=== PATIENT | female | born 1990 | race Caucasian/White ===

== ENCOUNTER 2018-03-09 02:40 | Emergency (ER) | payer OTHER ==
[2018-03-09 15:39] LABS: SQUAMOUS EPITHIAL 3 /hpf (0-5); URINE BILIRUBIN NEGATIVE (NEGATIVE); URINE BLOOD NEGATIVE (NEGATIVE); URINE CLARITY Clear (Clear); URINE COLOR Yellow (YELLOW); URINE GLUCOSE (UA) NORMAL (Normal); URINE HYALINE CAST 0-2 /lpf (0-2); URINE LEUKOCYTE ESTERASE NEG Leu/uL (Negative); URINE PROTEIN NEGATIVE (NEGATIVE); URINE UROBILINOGEN NORMAL mg/dL (0.2-1.0)
--- NOTE | 2018-03-09 18:49 | OBHP ---
Datetime: 03/09/2018 14:20 IP Adm Impression: Term, intrauterine ; No Active Labor; Intact Membranes IP Admit Plan: Observation/Evaluation Admit Comment, IP Provider: 27 yo female G1 with an IUP at 40 weeks and presented with c/o of Decrea se FM since about 9 AM today. Denies LOF, VB, VD or uterine activity PMHx and PSHx Negative Meds PNV NKDA Social HX negative x 3 A/P Term , not in labor Unfavorable cervix and scheduled for IOL on 03/15 Decreased Movement and OB US ordered with BPP + FM perceived and recorded while in here Drinks little to no water and po Hydration given UA sent to lab NST Reactive Continue monitoringObservation for now Pelvic Type - PN: Adequate Extremities - PN: Normal Abdomen - PN: Normal Back - PN: Normal Breast - PN: Not Done Lungs - PN: Normal Heart - PN: Normal Thyroid - PN: Normal Neurologic - PN: Normal HEENT - PN: Normal General - PN: Normal Presentation-Admit: Vertex FHR - Baseline A Provider: 140 Membranes, Provider: Intact Contraction Comments Provider: Ocassioal Gestation - Est Wks by US: 40.0 IP Hx Assessment: PNC records reviewed Vital Signs Provider: Reviewed; Within Normal Limits IP Chief Complaint: Decreased movement; evaluation NICHD Variability Prov Fetus A: Moderate 6-25bpm NICHD Accel Fetus A IP Provider: 10X10 FHR Category Provider Fetus A: Category I NICHD Decel Fetus A IP Provider: None Dilatation, Provider: Ftp Effacement, Provider: 50 Station, Provider: -3 Genitourinary Exam: Normal DTRs - PN: Normal
--- NOTE | 2018-03-09 18:57 | OBDCSUM ---
Datetime: 03/09/2018 18:48 Discharged to, Provider: Home Follow up at, Provider: Clinic Disch Instr Activity: Normal activity Disch Instr Diet: Regular Discharge Instructions, Provider: Routine instructions given Discharge Time: 03/09/2018 17:55 Follow up in weeks, Provider: Scheduled appt on 03/13 Contraception discussed, Prov: Yes Disch Activity Restrictions: No exercising Discharge Comment, Provider: 27 yo female G1 with an IUP at 40 weeks and presented with c/o of Decre ase FM since about 9 AM today. Denies LOF, VB, VD or uterine activity PMHx and PSHx Negative Meds PNV NKDA Social HX negative x 3 A/P Term , not in labor Unfavorable cervix and scheduled for IOL on 03/15 S/P Decreased Movement OB US ordered and HAYLEY 15 with BPP 8/8 NST Reactive so BPP 10/10 + FM perceived and recorded while in here Drinks little to no water and po Hydration given UA done and only mild dehydration noted Advised to increase po water intake Has appointment for BPP at [facility] on Tuesday 03/13 and advised to keep that appointment Meantime advised to do Kick Counts 3 x d after meals and verbalized understanding of instructions Labor precautions reviewed with patient and understood Continue PNV daily Discharged home in Stable and Satisfactory condition Discharge Diagnosis Prov Other: Term S/P Decrease Movement Not in labor BPP 10/10 Contraception after Delivery: Undecided Datetime: 03/09/2018 17:49 Discharged to, Provider: Home Disch Instr Activity: Normal activity Disch Instr Diet: Regular Discharge Time: 03/09/2018 17:50 Follow up in weeks, Provider: clinic Disch Referrals: Visiting Nurse Disch Activity Restrictions: No exercising
[2018-03-09 22:06] VITALS: BP 115/61; PULSE 81; RESP 20; TEMP 97.9
--- NOTE | 2018-03-10 10:42 | US ---
Limited OB ultrasound/biophysical profile. Indication: Decreased movement Comparison: None available Technique: Real-time ultrasound was performed through the pelvis. Findings: There is a single living fetus in cephalic presentation. Amniotic fluid volume measures approximately 15.7 cm, within normal limits. Fundal placenta. The placenta is not previa. There are no adnexal masses or cysts evident. Cervix length measures approximately 3.7 cm. The study was performed for the emergent evaluation of decreased motion, and the whole anatomic survey of the fetus was not performed. Limited visualized anatomy appears grossly unremarkable. Measurements and calculations: Fetus has a composite sonographic age of 39 weeks 0 days. This calculation is based on the biparietal diameter, head circumference, abdominal circumference, and femur length. Estimated heart rate 133 beats per min. Estimated weight 3727 g. Biophysical profile: movements 2/2 breathing 2/2 tone 2/2 Amniotic fluid 2/2 Total score impression: 11/23 Impression: Single living fetus with a composite sonographic age of 39 weeks 0 days. Estimated heart rate 133 beats per min. Biophysical profile of 8 out of 8. Preliminary impression was provided by [employer].
== END 2018-03-09 17:56 | disposition home or self-care (01) ==
LOC: C.EROB 02:40
DX: O36.8130 Decreased fetal movements, third trimester, not applicable or unspecified (principal); Z3A.40 40 weeks gestation of pregnancy

== ENCOUNTER 2018-03-11 11:30 | Inpatient (IN) | payer OTHER ==
[2018-03-11] MEDS ORDERED: Lactated Ringer's 1,000 ML IV ONE (12:31)
[2018-03-11 12:32] VITALS: BMI 27.1
[2018-03-11] MEDS ORDERED: Lactated Ringer's 1,000 ML IV SCH (12:45)
[2018-03-11 13:06] LABS: BASO # 0.1 K/uL (0.0-0.2); BASO % 0.4 % (0.0-2.0); EOS # 0.2 K/uL (0.0-0.7); EOS % 1.5 % (0.0-4.0); HEMOGLOBIN 12.9 g/dL (11.0-16.0); LYMPH # 1.9 K/uL (1.0-4.3); LYMPH % 14.9 % (20.0-40.0); MEAN CELL VOLUME 85.6 fL (81.0-99.0); MEAN CORPUSCULAR HEMOGLOBIN 28.3 pg (27.0-31.0); MEAN PLATELET VOLUME 11.8 fL (7.2-11.7); MONO # 0.9 K/uL (0.0-0.8); MONO % 7.4 % (0.0-10.0); NEUT # 9.7 K/uL (1.8-7.0); NEUT % 75.8 % (50.0-75.0); NRBC % 0.1 % (0.0-2.0); RBC 4.58 Mil/uL (3.80-5.20); RED CELL DISTRIBUTION WIDTH 14.1 % (11.5-14.5); WHITE BLOOD COUNT 12.8 K/uL (4.8-10.8)
[2018-03-11 13:11] LABS: SQUAMOUS EPITHIAL 1 /hpf (0-5); URINE BILIRUBIN NEGATIVE (NEGATIVE); URINE BLOOD 2+ (NEGATIVE); URINE CLARITY SLHAZY (Clear); URINE COLOR Yellow (YELLOW); URINE GLUCOSE (UA) NORMAL (Normal); URINE LEUKOCYTE ESTERASE 1+ Leu/uL (Negative); URINE PROTEIN NEGATIVE (NEGATIVE); URINE UROBILINOGEN NORMAL mg/dL (0.2-1.0)
[2018-03-11 13:23] LABS: ALBUMIN 3.7 g/dL (3.5-5.0); ALT/SGPT 24 U/L (9-52); AST/SGOT 28 U/L (14-36); BLOOD UREA NITROGEN 7 mg/dL (7-17); CALCIUM 9.1 mg/dl (8.6-10.4); GFR NON-AFRICAN AMERICAN > 60
--- NOTE | 2018-03-11 13:35 | OBADHP ---
Datetime: 03/11/2018 12:05 IP Chief Complaint Other: Vaginal spotting IP Admit Plan Other: Cervical ripening Admit Comment, IP Provider: Patient received in bed, LDR#4, accompanied by diony and her mother 27 y.o. , LMP 06/02/17, CAIN 03/09/18, EGA 40w 2d, confirmed by sono 08/30/17 at 13w 1d c/o vag inal spotting upon wiping after micturitionon 2 occasions this morning, 0400 [id number] hours. Patient a lso reported that her underwear was very "heavy'/ wet at both times - less so at 0730 hours. (+) AFM. Denies Ctx; feels pressure "when I walk". care: [facility]-; noted for abnormal 1 hr glucose challenge, 157 mg/dL and normal 3hr GTT 78/147/132/99, hgb A1C 4.1. 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 x 2 years. Unemployed Fam Hx:Mother alive 59 - HTN. Father alive 59 y.o. - asthma. No known fam h/o cancer P.E.: as above. WD in NAD. Patient has a mild speech impediment. Awake, alert, oriented to time, p erson and place. Assessment: 27 y.o. 40w 2d by LMP and early 2nd trimester sono, PPROM - evidenced by oligohydramni os by bedside ultrasound. Category 1 tracing. D/W cervical ripening, and possible pitocin for continu ed augmentaiton. Also discussed pain management. Patient expressed an understanidng and offered no qu etoins. Patietn is clincally stabl.e Plan: 1) Admit 2) NPO 3) Admission labs 4) Continuous EFM 5) Cervidil 6) Anesthesia consult, when indicated/ upon request 7) Anticipate vaginal delivery Addendum: 1302 hours: - cervidil placed in posterior vaginal vault without incident Pelvic Type - PN: Adequate Extremities - PN: Normal Abdomen - PN: Normal Back - PN: Normal Breast - PN: Not Done Lungs - PN: Normal Heart - PN: Normal Thyroid - PN: Not Done Neurologic - PN: Normal HEENT - PN: Normal General - PN: Normal Weight - Estimated: 6lb 8oz Presentation-Admit: Vertex FHR - Baseline A Provider: 130 Contraction Comments Provider: irregular Comments, ACOG Physical Exam: Abdomenn: Gravid. Soft. Non tender in all quadrants. Fundal height 35. 5 cm Perineum: dry Spec: mucoid, yellow, slightly blood-streaked discharge. No pooling. Nitrazine(-). Bedside sono: cephalic, (+) FBM, (+) FM; HAYLEY/MVP 1.1cm Extremities: (+) birthmark - dorsal aspect of left thigh All other systems reviewed and are negative Gestation - Est Wks by US: 40w 2d IP Hx Assessment: The History has been Reviewed and is Current Vital Signs Provider: Reviewed; Within Normal Limits IP Chief Complaint: Other NICHD Variability Prov Fetus A: Moderate 6-25bpm NICHD Accel Fetus A IP Provider: 15X15 FHR Category Provider Fetus A: Category I NICHD Decel Fetus A IP Provider: None Dilatation, Provider: 2 Effacement, Provider: 30 DTRs - PN: Normal EGA AdmitDate IP: 40.2 IP Adm Impression: Postterm, intrauterine ; No Active Labor; Ruptured Membranes IP Admit Plan: Admit to unit; Initiate labor augmentation protocol Datetime: 03/09/2018 14:20 Membranes, Provider: Intact Station, Provider: -3 Genitourinary Exam: Normal
--- NOTE | 2018-03-11 22:22 | OBPN ---
Datetime: 03/11/2018 22:14 IP Progress Impression: Normal progression of labor IP Procedures: Sterile Vag Exam IP Progress Plan: Continue present management; Cervical Ripening; Anesthesia consult Membranes, Provider: Ruptured Contraction Comments Provider: 2 FHR - Baseline A Provider: 140 Gestation - Est Wks by US: 40w 2d Presentation-Admit: Vertex IP Progress Note Comment: Patient c/o increasing pain. Cervical exam: as above. Assessment: 27 y.o. P0, 40w 2d, prolonged prelabor rupture of membranes, reulting in oligohydramni os. Responding well to cervical ripening. Afebrile; vital signs stable. Category 1 tracng. Patient re ceptive to epidural at this time. Clinically stable. Plan: 1) Start ampicillin 2) Anesthesia consult 3) Anticipate vaginal delivery Vital Signs Provider: Reviewed; Within Normal Limits NICHD Accel Fetus A IP Provider: 15X15 FHR Category Provider Fetus A: Category I NICHD Variability Prov Fetus A: Moderate 6-25bpm Dilatation, Provider: 4 Effacement, Provider: 50 Station, Provider: -3 NICHD Decel Fetus A IP Provider: None Datetime: 03/11/2018 12:05 Weight - Estimated: 6lb 8oz
[2018-03-11] MEDS ORDERED: AMPicillin 1 GM in Sodium Chloride 0.9% 100 ML IVPB SCH (22:30)
[2018-03-11] MEDS ORDERED: Bupivacaine HCl/FentaNYL Cit 100 ML EPI ONE (23:16)
[2018-03-11] MEDS ORDERED: Lidocaine Hydrochloride 5 ML INJ ONE ×2 (23:25)
[2018-03-11] MEDS ORDERED: Propofol 10 mg/ml Inj (20 ML) ONE (23:31)
[2018-03-11] MEDS ORDERED: Sodium Bicarbonate (8.4%) 50 Meq Syringe ONE (23:37)
[2018-03-11] MEDS ORDERED: Lidocaine 2% MPF (5 ml) Inj ONE (23:38)
[2018-03-11] MEDS ORDERED: Ketamine 50 mg/ml Inj (10 ml) ONE (23:41)
[2018-03-12] MEDS ORDERED: Oxytocin 30 UNIT 30 UNITS/500 ML BAG IV SCH (02:00)
[2018-03-12] MEDS ORDERED: Lidocaine 2% MPF (5 ml) Inj ONE ×2 (03:21→03:24)
[2018-03-12] MEDS ORDERED: Oxycodone/Acetaminophen 5/325 mg Tab PO PRN (03:57)
[2018-03-12] MEDS ORDERED: Benzocaine/Menthol 20%-0.5% Topical Spray (60 ml) TOP PRN (03:57)
--- NOTE | 2018-03-12 04:03 | OBDS ---
DELIVERY PERSONNEL Delivery Doctor: Mary Peña MD Printing Equipment Mechanic Apprentice: Angie Woodard RN Anesthesiologist: James Steward MD MATERNAL INFORMATION Delivery Anesthesia: Epidural Medications in Delivery: pitocin 20 units Placenta Cultured: No Maternal Complications: None Provider Comments: Uncomplicated vaginal delivery of live male over RML, thick mecoinium liqu or, compound presentation and cord around body. Infant's nose and mouth bulb-suctioned. Umbilical cor d doubly clamped and cut, infant placed on mother's abdomen. Portion of cord also submitted for cord pH, results = 7.11 Spontaneous delivery of placenta - grossly intact; 3 vessel cord; meconium stained. Uterine exploration performed - evacuated of blood and clots; uterus contracted and firm Cervix, vagina and perineum inspected - no extensions. Episiotomy repair as above. Hemostasis assured. Patient tolerated procedure well Infant and mother bonding; both in stable condition EBL 300 mL Weight 6lb 14oz 's 9/9 LABOR SUMMARY EDC: 03/09/2018 00:00 No. Babies in Womb: 0 Attempted: No Labor Anesthesia: Epidural LABOR INFORMATION Reason for Induction: Oligohydramnios Onset of Labor: 03/11/2018 23:00 Complete Dilatation: 03/12/2018 02:10 Cervical Ripening Agents: Cervidil Oxytocin: N/A Group B Beta Strep: Negative Antibiotics # of Doses: 1 Antibiotics Time of Last Dose: 2230 Steroids Given: None Reason Steroids Not Administered: Not Applicable MEMBRANES Membranes Rupture Method: Artificial Rupture of Membranes: 03/11/2018 04:00 Length of Rupture (hrs): 23.10 Amniotic Fluid Color: Heavy Meconium Amniotic Fluid Amount: Moderate Amniotic Fluid Odor: Normal STAGES OF LABOR Stage 1 hrs: 3 Stage 1 min: 10 Stage 2 hrs: 0 Stage 2 min: 56 Stage 3 hrs: 0 Stage 3 min: 7 Total Time in Labor hrs: 4 Total Time in Labor min: 13 VAGINAL DELIVERY Episiotomy: Right Mediolateral Laceration Extension: N/A Laceration Type: None Laceration Repair: Yes Laceration Repair Note: 2-0 and 3-0 chromic in routine fashion Hemostasis assured. Patient tolerated procedure well Initial Vag Sponge Count: 10 Final Vag Sponge Count: 10 Initial Vag Sharps Count: 0 Final Vag Sharps Count: 3 Sponge Count Correct: Yes; Vaginal Sweep Performed Sharps Count Correct: Yes Count Comment: correct BABY A INFORMATION Infant Delivery Date/Time: 03/12/2018 03:06 Method of Delivery: Vaginal Born in Route : No : N/A Forceps: N/A Vacuum Extraction: N/A Shoulder Dystocia : No SHOULDER DYSTOCIA BABY A Delivery Date/Time: 03/12/2018 03:06 PRESENTATION/POSITION BABY A Presentation: Cephalic Cephalic Presentation: Vertex Vertex Position: Left Occipital Anterior Breech Presentation: N/A PLACENTA INFORMATION BABY A Placenta Delivery Time : 03/12/2018 03:13 Placenta Method of Delivery: Spontaneous Placenta Status: Delivered SCORES BABY A Heart Rate 1 min: >100 bpm Resp Effort 1 min: Good Cry Reflex Irritability 1 min: Cough or Sneeze or Pulls Away Muscle Tone 1 min: Active Motion Color 1 min: Body [place], Extremities Blue SCORE 1 MIN: 9 Heart Rate 5 min: >100 bpm Resp Effort 5 min: Good Cry Reflex Irritability 5 min: Cough or Sneeze or Pulls Away Muscle Tone 5 min: Active Motion Color 5 min: Body [place], Extremities Blue SCORE 5 MIN: 9 INFANT INFORMATION BABY A Gestational Age at Delivery: 40.0 Gestational Status: Term Infant Outcome : Liveborn Condition : Stable Sex: Male IDENTIFICATION/MEDS BABY A ID Band Number: [id number] ID Band Location: Left Leg; Left Arm Sensor Applied: Yes Sensor Number: [id number] Sensor Location : Cord Clamp Vitamin K Given : Aquamephyton 1 mg IM Erythromycin Given: Given Both Eyes WEIGHT/LENGTH BABY A Birthweight (gms): 3115 Weight (lb): 6 Infant Weight (oz): 14 Length Inches: 19.50 Length cms: 49.5 CORD INFORMATION BABY A No. Cord Vessels: 3 Nuchal Cord : around body and hand Infant Cord pH Baby Arterial: 7.11 Cord Blood Taken: Yes Suction: Mouth ASSESSMENT BABY A Infant Complications: Multiple Variable Decels; Meconium Physical Findings at Delivery: Within Normal Limits Infant Respirations: Appears Normal Optometrist Assistant/ALS Called : No Infant Care By: Dr. Mcdonald Transferred To: Remains with Mother
[2018-03-12] MEDS: Multiple Vitamins Tab PO SCH (17:54)
[2018-03-13 07:26] LABS: EOS # 0.1 K/uL (0.0-0.7); MEAN PLATELET VOLUME 11.3 fL (7.2-11.7)
[2018-03-13 07:43] LABS: BASO # 0.1 K/uL (0.0-0.2); BASO % 0.6 % (0.0-2.0); EOS % 0.5 % (0.0-4.0); LYMPH # 2.2 K/uL (1.0-4.3); LYMPH % 13.3 % (20.0-40.0); MEAN CELL VOLUME 85.4 fL (81.0-99.0); MEAN CORPUSCULAR HEMOGLOBIN 28.5 pg (27.0-31.0); MEAN CORPUSCULAR HGB CONC 33.4 g/dL (33.0-37.0); MONO # 1.1 K/uL (0.0-0.8); MONO % 6.6 % (0.0-10.0); NEUT # 12.9 K/uL (1.8-7.0); RBC 3.22 Mil/uL (3.80-5.20); WHITE BLOOD COUNT 16.4 K/uL (4.8-10.8)
[2018-03-13 07:48] LABS: HEMOGLOBIN 9.3 g/dL (11.0-16.0)
--- NOTE | 2018-03-13 08:55 | OBPPN ---
Datetime: 03/13/2018 08:51 PP Pain Prov: Within normal limits PP Nausea Prov: Denies PP Lochia Prov: Normal PP Impression Prov: Normal progression PP Plan Prov: Continue present management PP Progress Note Prov: A/P: S/P PPD #1 - stable, afebrile - no issues - + breast/bottle feeding - continue present mgmt Vital Signs Provider PP: Reviewed; Within Normal Limits
[2018-03-13] MEDS: Multiple Vitamins Tab PO SCH (09:41)
[2018-03-14 01:31] VITALS: O2SAT 99
[2018-03-14 08:42] VITALS: BP 111/72; PULSE 80; RESP 18; TEMP 98.9
[2018-03-14] MEDS: Multiple Vitamins Tab PO SCH (09:44)
[2018-03-14] MEDS ORDERED: Influenza Vaccine 60 MCG/0.5 ML SYR (3 yr & up) IM ONE (13:00)
--- NOTE | 2018-03-14 17:06 | OBDCSUM ---
Datetime: 03/14/2018 11:14 Discharged to, Provider: Home Follow up at, Provider: [facility] Disch Instr Activity: Normal activity Disch Instr Diet: Regular Discharge Diet restrict Prov: none Discharge Instructions, Provider: Routine instructions given Discharge Diagnosis, Provider: Term Delivered Discharge Time: 03/14/2018 13:00 Follow up in weeks, Provider: April 21, 2017 Disch Referrals: None Contraception discussed, Prov: Yes Disch Activity Restrictions: No exercising; No lifting; No driving; Minimize walking; Minimize stair -climbing; No sexual activity; Nothing in vagina - [place], tampons, douche Discharge Diagnosis Prov Other: Acute blood loss anemia Contraception counseling Contraception after Delivery: IUD Datetime: 03/14/2018 08:06 Discharged to, Provider: Home Follow up at, Provider: Your Ob-scenic artist Discharge Instructions, Provider: Routine instructions given Discharge Diagnosis, Provider: Term Delivered Follow up in weeks, Provider: 4-6 weeks Disch Activity Restrictions: No sexual activity; Nothing in vagina - [place], tampons, douche Discharge Comment, Provider: Patient seen and examined at bedside. Patient reports pain is much impr anup today and has not needed pain medication. She is walking. Reports a bowel movement yesterday. No rmal lochia. Patient is breast feeding with a shield. Denies fever, chills, nausea, vomiting, dysuria and urinary frequency. Assessment and plan: S/p PPD#2 -Discharge to home -Ferrous Sulfate 325mg PO daily -Vitamin C suppliment daily -Increase green vegetables in diet -Pelvic rest for 6-8 weeks -Continue vitamins -Drink plenty of water daily -Follow up with your Ob-scenic artist in 4-6 weeks
== END 2018-03-14 15:15 | disposition home or self-care (01) | DRG 373 ==
LOC: C.EROB 11:30 → C.4D 12:36 → C.4M 03-12 04:40
PROVIDERS: ADMIT Obstetrics & Gynecology; ATTEND Obstetrics & Gynecology
PROC: 0W8NXZZ Division of Female Perineum, External Approach (ICD-10-PCS; principal; 2018-03-12)
PROC: 10E0XZZ Delivery of Products of Conception, External Approach (ICD-10-PCS; 2018-03-12)
DX: O69.81X0 Labor and delivery complicated by cord around neck, without compression, not applicable or unspecified (principal); O99.02 Anemia complicating childbirth; D62 Acute posthemorrhagic anemia; O76 Abnormality in fetal heart rate and rhythm complicating labor and delivery; O32.6XX0 Maternal care for compound presentation, not applicable or unspecified; O48.0 Post-term pregnancy; Z3A.40 40 weeks gestation of pregnancy; Z37.0 Single live birth